=== PATIENT | male | born 1955 | race Hispanic/Latino ===

== ENCOUNTER 2019-11-03 10:44 | Emergency (ER) | payer MEDICARE ==
[2019-11-03] MEDS ORDERED: LORAZEPAM 2 MG/ML 1 ML VIAL ONE (12:33)
== END 2019-11-03 17:39 | disposition home or self-care (01) ==
LOC: EDH 10:44
DX: M79.81 Nontraumatic hematoma of soft tissue (principal); K21.9 Gastro-esophageal reflux disease without esophagitis; F84.0 Autistic disorder; Z88.0 Allergy status to penicillin
CPT/HCPCS: 76882; 96372; 99284; J2060

== ENCOUNTER 2023-12-16 22:39 | Emergency (ER) | payer MEDICARE ==
[~2023-12-16] VITALS: Ht 162.6 cm; Wt 57.6 kg
[2023-12-16] MEDS: HALOPERIDOL INJ 5 MG/ML VIAL IM ONE (23:17)
[2023-12-16 23:23] LABS: BASOPHILS # (AUTO) 0.03 K/uL (0.00-0.20); BASOPHILS % (AUTO) 0.4 % (0.0-5.0); EOSINOPHILS # (AUTO) 0.17 K/uL (0.00-0.70); EOSINOPHILS % (AUTO) 2.1 % (0.0-8.0); IMMATURE GRANULOCYTE ABSOLUTE 0.02 K/uL (0-1); LYMPHOCYTES # (AUTO) 1.5 K/uL (1.0-4.8); LYMPHOCYTES % (AUTO) 18.8 % (21.0-51.0); MEAN CORPUSCULAR HEMOGLOBIN 30.2 pg (27.0-33.0); MEAN CORPUSCULAR HGB CONC 34.3 g/dL (32.0-36.0); MEAN CORPUSCULAR VOLUME 87.8 fL (79-99); MONOCYTES # (AUTO) 0.7 K/uL (0.1-1.0); MONOCYTES % (AUTO) 8.7 % (3.0-13.0); NEUTROPHILS # (AUTO) 5.7 K/uL (1.8-7.7); NEUTROPHILS % (AUTO) 69.8 % (40.0-77.0); PLATELET COUNT (AUTO) 179 K/uL (130-400); RED BLOOD CELL COUNT(AUTO) 5.24 MIL/uL (4.50-6.20); RED CELL DISTRIBUTION WIDTH 12.7 % (11.0-15.5); WHITE BLOOD COUNT (AUTO) 8.2 K/uL (4.8-10.8)
[2023-12-16 23:40] LABS: CREATININE 0.7 mg/dL (0.5-1.3)
[2023-12-17 00:20] LABS: APPEARANCE,URINE CLEAR (CLEAR); BILIRUBIN,URINE NEGATIVE (NEGATIVE); COLOR,URINE LIGHT-YELLOW (YELLOW); GLUCOSE, URINE (UA) NEGATIVE (NEGATIVE); KETONES,URINE NEGATIVE (NEGATIVE); LEUKOCYTE ESTERASE ,URINE NEGATIVE Leu/uL (NEGATIVE); NITRATE,URINE NEGATIVE (NEGATIVE); OCCULT BLOOD,URINE NEGATIVE (NEGATIVE); PROTEIN,URINE NEGATIVE (NEGATIVE); UROBILINOGEN,URINE 0.2 mg/dL (0.2-1.0)
[2023-12-17 00:21] LABS: ADD UA MICROSCOPIC NO
[2023-12-17] MEDS: DiphenhydrAMINE HCL 50 MG/ML VIAL IV ONE (02:02)
[2023-12-17] MEDS: DIAZEPAM 5 MG/ML 2 ML SYG IVP ONE (02:28)
[2023-12-17] MEDS ORDERED: PSYL660P17 PO (04:16)
[2023-12-17] MEDS ORDERED: SIME-10 PO (04:16)
[2023-12-17] MEDS ORDERED: CALC-190 PO (04:16)
[2023-12-17] MEDS ORDERED: DOCU-116 PO (04:16)
[2023-12-17] MEDS ORDERED: LORA2ORA5 PO (04:16)
[2023-12-17] MEDS ORDERED: ALBU0.63 IH (04:16)
[2023-12-17] MEDS ORDERED: TRAZ150T79 PO (04:16)
[2023-12-17] MEDS ORDERED: POLY119P3 PO (04:16)
[2023-12-17] MEDS ORDERED: NYST15CR40 TP (04:18)
[2023-12-17 04:39] VITALS: BP 126/64; PULSE 59; RESP 17; O2SAT 99
[2023-12-17] MEDS ORDERED: SULF1TAB42 PO (04:47)
== END 2023-12-17 05:14 | disposition home or self-care (01) ==
LOC: EDH 22:39
DX: K44.9 Diaphragmatic hernia without obstruction or gangrene (principal); N30.90 Cystitis, unspecified without hematuria; K59.00 Constipation, unspecified; K21.9 Gastro-esophageal reflux disease without esophagitis; F84.0 Autistic disorder; Z88.0 Allergy status to penicillin; Z93.3 Colostomy status
CPT/HCPCS: 99285; 82550; 80048; 85025; 81003; 36415; 96372; 74176; 96374; 76705; 96375; J1630; J1200; J3360